=== PATIENT | female | born 1970 | race Caucasian/White ===

== ENCOUNTER 2017-09-05 14:43 | Emergency (ER) | payer OTHER ==
[~2017-09-05] VITALS: Ht 154.9 cm; Wt 85.8 kg
[2017-09-05] MEDS ORDERED: MECLIZINE HCL25 MG PO (17:17)
[2017-09-05 17:32] VITALS: BP 149/72
== END 2017-09-05 17:33 | disposition home or self-care (01) ==
LOC: EME 14:43
DX: J06.9 Acute upper respiratory infection, unspecified (principal); R42 Dizziness and giddiness; Z88.6 Allergy status to analgesic agent
CPT/HCPCS: 99281; 99283